=== PATIENT | male | born 1960 | race African-American/Black ===

== ENCOUNTER 2025-05-15 17:11 | Inpatient (IN) | payer OTHER ==
[2025-05-15] MEDS ORDERED: Dextrose 50% Abboject 50 ML SYRINGE ONE (18:22)
[2025-05-15 18:23] LABS: Actual Bicarbonate (HCO3v) 20.8 mEq/L (22-28); Base Excess -2.3 mEq/L (-2.0 to +3.0); Calcium, Ionized (venous) 1.06 mmol/L (1.16-1.32); Chloride (VBG) 102 mmol/L (98-106); Hematocrit-VBG 44 % (42.0-52.0); Hemoglobin (Hb) 14.9 g/dL (13.1-17.2); Potassium (VBG) 4.35 mmol/L (3.70-5.30); Sodium 133 mmol/L (133-146)
[2025-05-15 18:27] LABS: Hematocrit 39.6 % (42.0-52.0); Hemoglobin 13.7 g/dL (14.0-18.0); Mean Corpuscular Hemoglobin 31.1 pg (27.0-31.0); Mean Corpuscular Volume 89.8 fL (78.0-98.0); Platelet Count 149 10x3/uL (130-400); Red Blood Cell (RBC) Count 4.41 mill/uL (4.70-6.10); White Blood Cell (WBC) Count 37.48 10x3/uL (4.8-10.8)
[2025-05-15 18:48] LABS: Anisocytosis MARKED = >30 cells HPF (0-5); Burr Cells MODERATE= 6-15 cells HPF (0-1); Macrocytosis MODERATE=16-30 cells HPF (0-5); Platelet Adequacy Comment Platelets Normal; Poikilocytosis MODERATE=16-30 cells HPF (0-5)
[2025-05-15 18:55] LABS: ALT (SGPT) 305 U/L (Less than 45); AST (SGOT) 1120 U/L (11-34); Albumin 3.3 g/dL (3.1-4.5); Alkaline Phosphatase 817 U/L (40-110); Anion Gap 12 mmol/L (10-20); BUN (Urea Nitrogen) 42 mg/dL (8.4-25.7); Bilirubin, Total 1.8 mg/dL (0.3-1.2); Calc. Creatinine Clearance 0 mL/min (70-130); Calcium 8.1 mg/dL (7.8-10.44); Carbon Dioxide 20 mmol/L (23-31); Chloride 106 mmol/L (98-107); Globulin 3.3 g/dL (2.4-3.5); Glucose 33 mg/dL (80-115); Lipase 10 U/L (8-78); Potassium 4.3 mmol/L (3.5-5.1); Sodium 134 mmol/L (136-145); Troponin I 0.476 ng/mL (< 0.028)
[2025-05-15 19:41] LABS: Troponin I 0.421 ng/mL (< 0.028)
[2025-05-15] MEDS ORDERED: Aspirin Chewable 81 MG TAB ONE (19:46)
[2025-05-15 20:08] LABS: Bacteria/HPF None Seen HPF (None Seen); CAUTI Indications for Culture Dysuria,urgency,freq; Glucose, Urine (Dipstick) 70 mg/dL (Negative); Leukocyte Negative Leu/uL (Negative); Protein, Urine (Dipstick) Negative (Neg-Trace); RBC/HPF None Seen HPF (0-3); Specific Gravity, Urine 1.011 (1.002-1.036); WBC/HPF 0-3 HPF (0-3)
[2025-05-15 20:24] LABS: Urine Culture Reflex No No
[2025-05-16] MEDS: Dextrose 50% Abboject 50 ML SYRINGE ONE (00:17)
[2025-05-16] MEDS ORDERED: Glucagon 1 MG/ML KIT IM PRN (00:38)
[2025-05-16] MEDS ORDERED: Electrolyte Replacement Protocol 1 EACH FS SCH (00:45)
[2025-05-16] MEDS ORDERED: Cyanocobalamin 1000 MCG/ML VIAL IM SCH (01:00)
[2025-05-16 04:08] LABS: Hematocrit 38.5 % (42.0-52.0); Hemoglobin 13.1 g/dL (14.0-18.0); Mean Corpuscular Hemoglobin 30.9 pg (27.0-31.0); Mean Corpuscular Volume 90.8 fL (78.0-98.0); Platelet Count 114 10x3/uL (130-400); Red Blood Cell (RBC) Count 4.24 mill/uL (4.70-6.10); White Blood Cell (WBC) Count 33.45 10x3/uL (4.8-10.8)
[2025-05-16 04:12] LABS: ALT (SGPT) 255 U/L (Less than 45); AST (SGOT) 663 U/L (11-34); Albumin 3.0 g/dL (3.1-4.5); Alkaline Phosphatase 714 U/L (40-110); Anion Gap 11 mmol/L (10-20); BUN (Urea Nitrogen) 32 mg/dL (8.4-25.7); Bilirubin, Total 1.3 mg/dL (0.3-1.2); Calc. Creatinine Clearance 79 mL/min (70-130); Calcium 7.7 mg/dL (7.8-10.44); Carbon Dioxide 18 mmol/L (23-31); Chloride 107 mmol/L (98-107); Globulin 3.0 g/dL (2.4-3.5); Glucose 108 mg/dL (80-115); Potassium 4.1 mmol/L (3.5-5.1); Sodium 132 mmol/L (136-145)
[2025-05-16] MEDS: Calcium Carbonate 500 MG ChewTAB PO PRN (09:43)
[2025-05-16] MEDS: Acetaminophen 325 MG TAB PO PRN (09:43)
[2025-05-16] MEDS: Pantoprazole 40 MG VIAL IVP SCH (09:47)
[2025-05-16] MEDS ORDERED: Iopamidol-370 76% 500 ML MDV (1 ML CHARGE) ONE (11:45)
[2025-05-16] MEDS: Vancomycin 1 GM in Premix 1 BAG IVPB SCH (15:01)
[2025-05-16] MEDS: Mupirocin 1 GM TUBE NASAL DECOLONIZATION NASAL SCH (20:52)
[2025-05-16] MEDS ORDERED: Vancomycin 1 GM in Premix 1 BAG IVPB SCH (21:00)
[2025-05-16] MEDS: Dicyclomine 10 MG CAP PO SCH (22:33)
[2025-05-17 04:41] LABS: Vancomycin, Random 5.8 ug/mL (See Comment)
[2025-05-17 04:48] LABS: Calc. Creatinine Clearance 78.0 mL/min (70-130)
[2025-05-17] MEDS: Dextrose 50% Abboject 50 ML SYRINGE SLOW IVP PRN (05:31)
[2025-05-17] MEDS ORDERED: PROPOFOL 20 ML ONE (10:11)
[2025-05-17] MEDS ORDERED: PHENYLEPHRINE-NS 100 MCG/ML 10 ML SYRINGE ONE ×2 (10:43)
[2025-05-17] MEDS: Fluconazole In NaCl,Iso-Osm 100 MG in Admixture Fee 1 EACH IVPB SCH (15:08)
[2025-05-17] MEDS ORDERED: Fluconazole In NaCl,Iso-Osm 200 MG in Admixture Fee 1 EACH IVPB SCH (20:00)
[2025-05-17] MEDS: Fluconazole In NaCl,Iso-Osm 200 MG in Premix 1 BAG IVPB SCH (20:58)
[2025-05-18 04:40] LABS: #Basophils 0.12 10x3/uL (0.0-0.2); #Eosinophils Less than 0.03 10x3/uL (0.0-0.7); #Monocytes 0.68 10x3/uL (0.11-0.59); #Neutrophils 21.42 10x3/uL (1.40-6.50); %Basophils 0.5 % (0.0-1.0); %Eosinophils 0.0 % (0.0-10.0); %Lymphocytes 2.2 % (21.0-51.0); %Monocytes 2.9 % (0.0-10.0); %Neutrophils 90.7 % (42.0-75.0); Hematocrit 39.4 % (42.0-52.0); Hemoglobin 13.7 g/dL (14.0-18.0); Mean Corpuscular Hemoglobin 31.4 pg (27.0-31.0); Mean Corpuscular Volume 90.4 fL (78.0-98.0); Platelet Count 69 10x3/uL (130-400); Red Blood Cell (RBC) Count 4.36 mill/uL (4.70-6.10); White Blood Cell (WBC) Count 23.60 10x3/uL (4.8-10.8)
[2025-05-18 04:53] LABS: INR-International Normal Ratio 1.9; Prothrombin Time 21.7 sec (12.0-14.7)
[2025-05-18 04:54] LABS: Vancomycin, Random 9.7 ug/mL (See Comment)
[2025-05-18 04:56] LABS: ALT (SGPT) 215 U/L (Less than 45); AST (SGOT) 311 U/L (11-34); Albumin 2.8 g/dL (3.1-4.5); Alkaline Phosphatase 763 U/L (40-110); Anion Gap 10 mmol/L (10-20); BUN (Urea Nitrogen) 19 mg/dL (8.4-25.7); Bilirubin, Total 1.6 mg/dL (0.3-1.2); Calc. Creatinine Clearance 102 mL/min (70-130); Calcium 7.2 mg/dL (7.8-10.44); Carbon Dioxide 28 mmol/L (23-31); Chloride 100 mmol/L (98-107); Globulin 3.0 g/dL (2.4-3.5); Glucose 96 mg/dL (80-115); Magnesium 1.5 mg/dL (1.6-2.6); Potassium 3.1 mmol/L (3.5-5.1); Sodium 135 mmol/L (136-145)
[2025-05-18] MEDS: Potassium Phosphate 30 MMOL in Sodium Chloride 0.9% 250 ML 250 ML IVPB SCH (08:12)
[2025-05-18] MEDS: Magnesium 2 GM/50 ML(in water) 2 GM in Premix 1 BAG IVPB SCH ×2 (09:30→22:16)
[2025-05-18] MEDS: Enoxaparin 30 MG (0.3 mL) SYRINGE SC SCH (09:31)
[2025-05-18 14:30] LABS: Magnesium 1.8 mg/dL (1.6-2.6)
[2025-05-19 05:26] LABS: Hematocrit 39.7 % (42.0-52.0); Hemoglobin 13.6 g/dL (14.0-18.0); Mean Corpuscular Hemoglobin 30.8 pg (27.0-31.0); Mean Corpuscular Volume 89.8 fL (78.0-98.0); Platelet Count 62 10x3/uL (130-400); Red Blood Cell (RBC) Count 4.42 mill/uL (4.70-6.10); White Blood Cell (WBC) Count 25.76 10x3/uL (4.8-10.8)
[2025-05-19 05:45] LABS: ALT (SGPT) 148 U/L (Less than 45); AST (SGOT) 153 U/L (11-34); Albumin 2.6 g/dL (3.1-4.5); Alkaline Phosphatase 634 U/L (40-110); Anion Gap 11 mmol/L (10-20); BUN (Urea Nitrogen) 13 mg/dL (8.4-25.7); Bilirubin, Total 1.7 mg/dL (0.3-1.2); Calc. Creatinine Clearance 50 mL/min (70-130); Calcium 7.0 mg/dL (7.8-10.44); Carbon Dioxide 28 mmol/L (23-31); Chloride 97 mmol/L (98-107); Globulin 2.9 g/dL (2.4-3.5); Glucose 127 mg/dL (80-115); Magnesium 1.9 mg/dL (1.6-2.6); Potassium 3.1 mmol/L (3.5-5.1); Sodium 133 mmol/L (136-145)
[2025-05-19 05:59] LABS: Anisocytosis SLIGHT = 6-15 cells HPF (0-5); Platelet Adequacy Comment Platelets Decreased; Poikilocytosis SLIGHT = 6-15 cells HPF (0-5)
[2025-05-19] MEDS: Potassium Phosphate 30 MMOL in Sodium Chloride 0.9% 250 ML 250 ML IVPB SCH (07:01)
[2025-05-19] MEDS: Magnesium 2 GM/50 ML(in water) 2 GM in Premix 1 BAG IVPB SCH (09:29)
[2025-05-19] MEDS: Potassium Chloride 20 MEQ in Premix 1 BAG IVPB SCH (11:12)
[2025-05-19] MEDS ORDERED: Dextrose 50% Abboject 50 ML SYRINGE ONE ×2 (13:27→14:55)
[2025-05-19] MEDS ORDERED: SUCCINYLCHOLINE/SOD CL,ISO/PF 200 MG/10 ML SYRINGE FS ONE (13:29)
[2025-05-19] MEDS ORDERED: Lidocaine 1% PF 5 ML VIAL ONE (13:29)
[2025-05-19] MEDS ORDERED: Etomidate 40 MG (20 mL) VIAL ONE (13:29)
[2025-05-19] MEDS ORDERED: Ondansetron PF 4 MG/2 ML Vial ONE (14:03)
[2025-05-19] MEDS ORDERED: PHENYLEPHRINE-NS 100 MCG/ML 10 ML SYRINGE ONE (14:09)
[2025-05-20 05:28] LABS: ALT (SGPT) 96 U/L (Less than 45); AST (SGOT) 95 U/L (11-34); Albumin 2.4 g/dL (3.1-4.5); Alkaline Phosphatase 498 U/L (40-110); Anion Gap 11 mmol/L (10-20); BUN (Urea Nitrogen) 19 mg/dL (8.4-25.7); Bilirubin, Total 1.6 mg/dL (0.3-1.2); Calc. Creatinine Clearance 103 mL/min (70-130); Calcium 6.9 mg/dL (7.8-10.44); Carbon Dioxide 26 mmol/L (23-31); Chloride 100 mmol/L (98-107); Globulin 2.5 g/dL (2.4-3.5); Glucose 208 mg/dL (80-115); Potassium 3.5 mmol/L (3.5-5.1); Sodium 133 mmol/L (136-145)
[2025-05-20 05:48] LABS: #Basophils 0.17 10x3/uL (0.0-0.2); #Eosinophils Less than 0.03 10x3/uL (0.0-0.7); #Monocytes 0.69 10x3/uL (0.11-0.59); #Neutrophils 24.04 10x3/uL (1.40-6.50); %Basophils 0.6 % (0.0-1.0); %Eosinophils 0.0 % (0.0-10.0); %Lymphocytes 1.5 % (21.0-51.0); %Monocytes 2.6 % (0.0-10.0); %Neutrophils 91.7 % (42.0-75.0); Hematocrit 36.1 % (42.0-52.0); Hemoglobin 12.6 g/dL (14.0-18.0); Mean Corpuscular Hemoglobin 31.3 pg (27.0-31.0); Mean Corpuscular Volume 89.6 fL (78.0-98.0); Platelet Count 47 10x3/uL (130-400); Red Blood Cell (RBC) Count 4.03 mill/uL (4.70-6.10); White Blood Cell (WBC) Count 26.24 10x3/uL (4.8-10.8)
[2025-05-20] MEDS: CALCIUM GLUC 1 GM/NS 50 ML 1 GM in Premix 1 BAG IVPB SCH (06:41)
[2025-05-20] MEDS: Albumin 25% 25 GM (100 mL) BOT IVPB SCH ×2 (06:46→13:34)
[2025-05-20] MEDS: Potassium Chloride 20 MEQ in Premix 1 BAG IVPB SCH (08:19)
[2025-05-20] MEDS: Ondansetron PF 4 MG/2 ML Vial IVP PRN (09:33)
[2025-05-21 05:02] LABS: ALT (SGPT) 442 U/L (Less than 45); AST (SGOT) 1825 U/L (11-34); Albumin 3.0 g/dL (3.1-4.5); Alkaline Phosphatase 919 U/L (40-110); Anion Gap 12 mmol/L (10-20); BUN (Urea Nitrogen) 22 mg/dL (8.4-25.7); Bilirubin, Total 3.4 mg/dL (0.3-1.2); Calc. Creatinine Clearance 108 mL/min (70-130); Calcium 7.3 mg/dL (7.8-10.44); Carbon Dioxide 25 mmol/L (23-31); Chloride 103 mmol/L (98-107); Globulin 2.1 g/dL (2.4-3.5); Glucose 124 mg/dL (80-115); Magnesium 1.6 mg/dL (1.6-2.6); Potassium 3.3 mmol/L (3.5-5.1); Sodium 137 mmol/L (136-145)
[2025-05-21 05:04] LABS: Hematocrit 30.9 % (42.0-52.0); Hemoglobin 10.7 g/dL (14.0-18.0); Mean Corpuscular Hemoglobin 31.5 pg (27.0-31.0); Mean Corpuscular Volume 90.9 fL (78.0-98.0); Platelet Count 44 10x3/uL (130-400); Red Blood Cell (RBC) Count 3.40 mill/uL (4.70-6.10); White Blood Cell (WBC) Count 23.85 10x3/uL (4.8-10.8)
[2025-05-21] MEDS: Magnesium 2 GM/50 ML(in water) 2 GM in Premix 1 BAG IVPB SCH (05:28)
[2025-05-21] MEDS: PHOS-NAK 1 PKT PACK PO SCH (05:53)
[2025-05-21] MEDS: Potassium Chloride 20 MEQ in Premix 1 BAG IVPB SCH (05:53)
[2025-05-21 06:43] LABS: Anisocytosis SLIGHT = 6-15 cells HPF (0-5); Burr Cells MODERATE= 6-15 cells HPF (0-1); Macrocytosis SLIGHT = 6-15 cells HPF (0-5); Platelet Adequacy Comment Significant Decrease; Polychromasia SLIGHT = 2-3 cells HPF (0-2); Smudge Cells 1.0 %
[2025-05-21] MEDS: Potassium Phosphate 15 MMOL / NS 100 ML IVPB SCH (08:11)
[2025-05-21] MEDS: Fluconazole In NaCl,Iso-Osm 100 MG in Admixture Fee 1 EACH IVPB SCH (20:21)
[2025-05-22 03:55] LABS: Hematocrit 31.4 % (42.0-52.0); Hemoglobin 10.8 g/dL (14.0-18.0); Mean Corpuscular Hemoglobin 31.3 pg (27.0-31.0); Mean Corpuscular Volume 91.0 fL (78.0-98.0); Platelet Count 35 10x3/uL (130-400); Red Blood Cell (RBC) Count 3.45 mill/uL (4.70-6.10); White Blood Cell (WBC) Count 19.55 10x3/uL (4.8-10.8)
[2025-05-22 04:24] LABS: ALT (SGPT) 484 U/L (Less than 45); AST (SGOT) 1324 U/L (11-34); Albumin 2.8 g/dL (3.1-4.5); Alkaline Phosphatase 931 U/L (40-110); Anion Gap 11 mmol/L (10-20); BUN (Urea Nitrogen) 13 mg/dL (8.4-25.7); Bilirubin, Total 2.4 mg/dL (0.3-1.2); Burr Cells MODERATE= 6-15 cells HPF (0-1); Calc. Creatinine Clearance 136 mL/min (70-130); Calcium 7.1 mg/dL (7.8-10.44); Carbon Dioxide 28 mmol/L (23-31); Chloride 100 mmol/L (98-107); Globulin 2.3 g/dL (2.4-3.5); Glucose 113 mg/dL (80-115); Magnesium 1.6 mg/dL (1.6-2.6); Platelet Adequacy Comment Platelets Decreased; Potassium 2.9 mmol/L (3.5-5.1); Sodium 136 mmol/L (136-145)
[2025-05-22] MEDS: Magnesium 2 GM/50 ML(in water) Premix IVPB SCH (05:44)
[2025-05-22] MEDS: Potassium Phosphate 15 MMOL / NS 100 ML IVPB SCH (05:46)
[2025-05-22 06:53] VITALS: BMI 13.7
[2025-05-22] MEDS ORDERED: HYDROcodone/Acetaminophen 5/325 mg Tablet PO PRN (09:19)
[2025-05-22] MEDS: HYDROcodone/Acetaminophen 5/325 mg Tablet PO SCH (11:00)
[2025-05-22] MEDS ORDERED: oxyCODONE 5 MG TAB PO PRN (14:20)
[2025-05-22] MEDS: Lactulose 20 GM (30 mL) UDCUP PER TUBE SCH (14:47)
[2025-05-22] MEDS: Bisacodyl 10 MG SUPP PR SCH (14:47)
[2025-05-22] MEDS: Ketorolac Tromethamine 30 MG (1 mL) VIAL IVP SCH (14:50)
[2025-05-22] MEDS: D5 1/2 NS w/20 mEq KCL 1,000 ML IV SCH (17:32)
[2025-05-23 05:14] LABS: Hematocrit 31.6 % (42.0-52.0); Hemoglobin 10.9 g/dL (14.0-18.0); Mean Corpuscular Hemoglobin 31.3 pg (27.0-31.0); Mean Corpuscular Volume 90.8 fL (78.0-98.0); Platelet Count 37 10x3/uL (130-400); Red Blood Cell (RBC) Count 3.48 mill/uL (4.70-6.10); White Blood Cell (WBC) Count 17.66 10x3/uL (4.8-10.8)
[2025-05-23 05:25] LABS: ALT (SGPT) 466 U/L (Less than 45); AST (SGOT) 773 U/L (11-34); Albumin 2.6 g/dL (3.1-4.5); Alkaline Phosphatase 976 U/L (40-110); Anion Gap 10 mmol/L (10-20); BUN (Urea Nitrogen) 14 mg/dL (8.4-25.7); Bilirubin, Total 2.0 mg/dL (0.3-1.2); Calc. Creatinine Clearance 150 mL/min (70-130); Calcium 7.5 mg/dL (7.8-10.44); Carbon Dioxide 29 mmol/L (23-31); Chloride 101 mmol/L (98-107); Globulin 2.7 g/dL (2.4-3.5); Glucose 57 mg/dL (80-115); Magnesium 1.7 mg/dL (1.6-2.6); Potassium 3.5 mmol/L (3.5-5.1); Sodium 136 mmol/L (136-145)
[2025-05-23 05:49] LABS: Anisocytosis SLIGHT = 6-15 cells HPF (0-5); Burr Cells SLIGHT = 2-5 cells HPF (0-1); Macrocytosis SLIGHT = 6-15 cells HPF (0-5); Platelet Adequacy Comment Significant Decrease; Smudge Cells 1.0 %
[2025-05-23] MEDS: Magnesium 2 GM/50 ML(in water) 2 GM in Premix 1 BAG IVPB SCH (09:03)
[2025-05-23] MEDS: PHOS-NAK 1 PKT PACK PO SCH (09:03)
[2025-05-23] MEDS: oxyCODONE 5 MG TAB PO PRN (09:16)
[2025-05-23] MEDS ORDERED: Bisacodyl 10 MG SUPP PR PRN (17:10)
[2025-05-24 05:12] LABS: Hematocrit 35.1 % (42.0-52.0); Hemoglobin 12.0 g/dL (14.0-18.0); Mean Corpuscular Hemoglobin 30.8 pg (27.0-31.0); Mean Corpuscular Volume 90.2 fL (78.0-98.0); Platelet Count 45 10x3/uL (130-400); Red Blood Cell (RBC) Count 3.89 mill/uL (4.70-6.10); White Blood Cell (WBC) Count 23.86 10x3/uL (4.8-10.8)
[2025-05-24 06:01] LABS: Burr Cells MODERATE= 6-15 cells HPF (0-1); Platelet Adequacy Comment Platelets Decreased; Poikilocytosis MARKED = >30 cells HPF (0-5); Smudge Cells 1.0 %
[2025-05-24] MEDS ORDERED: Bisacodyl 10 MG SUPP PR PRN (08:43)
[2025-05-24] MEDS: D5 1/2 NS w/20 mEq KCL 1,000 ML IV SCH (23:00)
[2025-05-24 23:37] LABS: Anion Gap 12 mmol/L (10-20); BUN (Urea Nitrogen) 19 mg/dL (8.4-25.7); Calc. Creatinine Clearance 124 mL/min (70-130); Calcium 7.5 mg/dL (7.8-10.44); Carbon Dioxide 19 mmol/L (23-31); Chloride 104 mmol/L (98-107); Glucose 164 mg/dL (80-115); Magnesium 1.9 mg/dL (1.6-2.6); Potassium 3.9 mmol/L (3.5-5.1); Sodium 131 mmol/L (136-145)
[2025-05-25 07:53] LABS: ALT (SGPT) 235 U/L (Less than 45); AST (SGOT) 123 U/L (11-34); Albumin 2.0 g/dL (3.1-4.5); Alkaline Phosphatase 660 U/L (40-110); Anion Gap 11 mmol/L (10-20); BUN (Urea Nitrogen) 22 mg/dL (8.4-25.7); Bilirubin, Total 1.4 mg/dL (0.3-1.2); Calc. Creatinine Clearance 131 mL/min (70-130); Calcium 7.2 mg/dL (7.8-10.44); Carbon Dioxide 20 mmol/L (23-31); Chloride 103 mmol/L (98-107); Globulin 2.5 g/dL (2.4-3.5); Glucose 128 mg/dL (80-115); Potassium 4.0 mmol/L (3.5-5.1); Sodium 130 mmol/L (136-145)
[2025-05-25 07:53] LABS: Hematocrit 37.0 % (42.0-52.0); Hemoglobin 12.2 g/dL (14.0-18.0); Mean Corpuscular Hemoglobin 30.8 pg (27.0-31.0); Mean Corpuscular Volume 93.4 fL (78.0-98.0); Platelet Count 50 10x3/uL (130-400); Red Blood Cell (RBC) Count 3.96 mill/uL (4.70-6.10); White Blood Cell (WBC) Count 15.15 10x3/uL (4.8-10.8)
[2025-05-25 09:23] LABS: Burr Cells MARKED = >16 cells HPF (0-1); Platelet Adequacy Comment Platelets Decreased; Schistocytes SLIGHT = 2-5 cells HPF (0-1); Smudge Cells 1.0 %; Spherocytes SLIGHT = 1-5 cells HPF (None Seen); Toxic Granulation SLIGHT
[2025-05-25] MEDS: Lactulose 20 GM (30 mL) UDCUP PER TUBE SCH (10:05)
[2025-05-25] MEDS: Magnesium 2 GM/50 ML(in water) 2 GM in Premix 1 BAG IVPB SCH (10:17)
[2025-05-25] MEDS: D5 1/2 NS w/20 mEq KCL 1,000 ML IV SCH (18:21)
[2025-05-25 20:31] VITALS: BP 81/57
[2025-05-26] MEDS ORDERED: Albumin 25% 25 GM (100 mL) BOT IVPB SCH (01:00)
[2025-05-26] MEDS ORDERED: Furosemide 40 MG (4 mL) VIAL SLOW IVP SCH (01:45)
[2025-05-26] MEDS: Albumin 25% 25 GM (100 mL) BOT IVPB SCH (02:15)
[2025-05-26] MEDS: NOREPINEPHRINE 8 MG/250 ML-D5W 250 ML ONE (02:55)
[2025-05-26] MEDS: NOREPINEPHRINE 8 MG/250 ML-D5W 250 ML IVPB SCH (02:55)
[2025-05-26 05:27] VITALS: BMI 13.8
[2025-05-26 07:49] LABS: Hematocrit 32.1 % (42.0-52.0); Hemoglobin 10.9 g/dL (14.0-18.0); Mean Corpuscular Hemoglobin 30.7 pg (27.0-31.0); Mean Corpuscular Volume 90.4 fL (78.0-98.0); Platelet Count 34 10x3/uL (130-400); Red Blood Cell (RBC) Count 3.55 mill/uL (4.70-6.10); White Blood Cell (WBC) Count 4.90 10x3/uL (4.8-10.8)
[2025-05-26 08:59] VITALS: TEMP 97.8
[2025-05-26 09:13] LABS: Burr Cells MODERATE= 6-15 cells HPF (0-1); Nucleated RBC (Manual Ct) 1 % (0); Platelet Adequacy Comment Platelets Decreased; Poikilocytosis MARKED = >30 cells HPF (0-5)
[2025-05-26] MEDS ORDERED: Glycopyrrolate 0.4 MG/ 2 ML VIAL SLOW IVP PRN (17:23)
[2025-05-26] MEDS ORDERED: Scopolamine 1 mg/72 hour Patch TD PRN (17:23)
[2025-05-26] MEDS ORDERED: Ondansetron PF 4 MG/2 ML Vial IVP PRN (17:23)
[2025-05-26] MEDS ORDERED: Fluconazole In NaCl,Iso-Osm 200 MG in Admixture Fee 1 EACH IVPB SCH (20:00)
[2025-05-27] MEDS ORDERED: Naloxegol 12.5 MG TAB PO SCH (07:30)
== END 2025-05-26 17:39 | disposition expired | DRG 640 ==
LOC: ERS 17:11 → PCU 21:26 → OBSVTOIN 05-16 00:40 → MSONC 05-17 12:43 → IMCU/EMU 05-17 22:21 → SURG B 05-22 16:21 → CCU 05-26 02:10
PROVIDERS: ADMIT Student in an Organized Health Care Education/Training Program; ATTEND Internal Medicine
PROC: 3E03329 Introduction of Other Anti-infective into Peripheral Vein, Percutaneous Approach (ICD-10-PCS; 2025-05-16)
PROC: 0DB58ZX Excision of Esophagus, Via Natural or Artificial Opening Endoscopic, Diagnostic (ICD-10-PCS; principal; 2025-05-18)
PROC: 0DHA0UZ Insertion of Feeding Device into Jejunum, Open Approach (ICD-10-PCS; 2025-05-20)
PROC: 3E0H76Z Introduction of Nutritional Substance into Lower GI, Via Natural or Artificial Opening (ICD-10-PCS; 2025-05-20)
PROC: 30233J1 Transfusion of Nonautologous Serum Albumin into Peripheral Vein, Percutaneous Approach (ICD-10-PCS; 2025-05-20)
PROC: 3E033XZ Introduction of Vasopressor into Peripheral Vein, Percutaneous Approach (ICD-10-PCS; 2025-05-26)
PROC: 3E043XZ Introduction of Vasopressor into Central Vein, Percutaneous Approach (ICD-10-PCS; 2025-05-26)
PROC: 0T9B70Z Drainage of Bladder with Drainage Device, Via Natural or Artificial Opening (ICD-10-PCS; 2025-05-26)
PROC: 5A0935A Assistance with Respiratory Ventilation, Less than 24 Consecutive Hours, High Flow/Velocity Cannula (ICD-10-PCS; 2025-05-26)
PROC: 02HV33Z Insertion of Infusion Device into Superior Vena Cava, Percutaneous Approach (ICD-10-PCS; 2025-05-26)
PROC: 0DD68ZX Extraction of Stomach, Via Natural or Artificial Opening Endoscopic, Diagnostic (ICD-10-PCS; 2025-05-26)
DX: E43 Unspecified severe protein-calorie malnutrition (principal); A41.9 Sepsis, unspecified organism; J69.0 Pneumonitis due to inhalation of food and vomit; I21.A1 Myocardial infarction type 2; J96.01 Acute respiratory failure with hypoxia; J18.9 Pneumonia, unspecified organism; Z68.1 Body mass index [BMI] 19.9 or less, adult; B37.81 Candidal esophagitis; K31.1 Adult hypertrophic pyloric stenosis; K56.7 Ileus, unspecified; R64 Cachexia; C83.398 Diffuse large B-cell lymphoma of other extranodal and solid organ sites; C83.38 Diffuse large B-cell lymphoma, lymph nodes of multiple sites; Z51.5 Encounter for palliative care; Z66 Do not resuscitate; E16.2 Hypoglycemia, unspecified; K21.9 Gastro-esophageal reflux disease without esophagitis; R13.10 Dysphagia, unspecified; F17.210 Nicotine dependence, cigarettes, uncomplicated; R74.01 Elevation of levels of liver transaminase levels; I10 Essential (primary) hypertension; E80.6 Other disorders of bilirubin metabolism; T45.1X5A Adverse effect of antineoplastic and immunosuppressive drugs, initial encounter; R54 Age-related physical debility; G89.29 Other chronic pain; K59.00 Constipation, unspecified; D69.59 Other secondary thrombocytopenia; M54.9 Dorsalgia, unspecified; Z98.890 Other specified postprocedural states; Z90.49 Acquired absence of other specified parts of digestive tract; Z79.899 Other long term (current) drug therapy; Z87.11 Personal history of peptic ulcer disease
CPT/HCPCS: 36415; 36416; 71045; 71260; 74018; 74177; 76705; 80048; 80053; 80202; 81001; 82310; 82565; 82805; 83605; 83690; 83735; 83880; 84100; 84443; 84484; 85025; 85610; 87040; 87081; 87086; 88305; 93005; 94640; 96361; 96374; 96376; B4087; C1713; G0378; J0613; J1100; J1450; J1650; J1885; J2270; J2405; J2470; J2543; J2704; J3010; J3373; J3411; J3475; J3480; J7030; J7050; J7070; J7120; J7620; J7999; P9045; P9047; Q9967